=== PATIENT | female | born 1955 | race Hispanic/Latino ===

== ENCOUNTER → 2017-09-25 | Outpatient (CLI) | payer MEDICAID | END | disposition home or self-care (01) | LOC: RAH 09:35 | PROVIDERS: ATTEND Family Medicine | DX: R10.13 Epigastric pain (principal); R07.9 Chest pain, unspecified; G89.29 Other chronic pain; Z87.11 Personal history of peptic ulcer disease | CPT/HCPCS: 74240; 76604 ==

== ENCOUNTER → 2020-04-13 | Outpatient (CLI) | payer OTHER ==
[2020-04-13 11:21] LABS: CREATININE 0.6 mg/dL (0.5-1.5)
== END | disposition home or self-care (01) ==
LOC: LAB 09:20
PROVIDERS: ATTEND Urology
DX: R31.0 Gross hematuria (principal)
CPT/HCPCS: 36415; 82565; 84520

== ENCOUNTER → 2020-07-31 | Outpatient (CLI) | payer OTHER | END | disposition home or self-care (01) | LOC: RAH 09:30 | PROVIDERS: ATTEND Urology | DX: N20.0 Calculus of kidney (principal); K57.30 Diverticulosis of large intestine without perforation or abscess without bleeding; I87.8 Other specified disorders of veins; R31.0 Gross hematuria; Z90.49 Acquired absence of other specified parts of digestive tract | CPT/HCPCS: 74176 ==

== ENCOUNTER → 2021-02-05 | Outpatient (CLI) | payer OTHER ==
[2021-02-05 11:52] LABS: BASOPHILS % (AUTO) 0.7 % (0.0-5.0); EOSINOPHILS % (AUTO) 2.7 % (0.0-8.0); HEMATOCRIT 40.8 % (36-48); MEAN CORPUSCULAR HEMOGLOBIN 27.8 pg (27.0-33.0); MEAN CORPUSCULAR HGB CONC 32.8 g/dL (32.0-36.0); MEAN CORPUSCULAR VOLUME 84.6 fL (79-99); MONOCYTES % (AUTO) 7.3 % (3.0-13.0); NEUTROPHILS % (AUTO) 60.9 % (40.0-77.0); PLATELET COUNT (AUTO) 292 K/uL (130-400); RED BLOOD CELL COUNT(AUTO) 4.82 MIL/uL (4.00-5.50); RED CELL DISTRIBUTION WIDTH 13.9 % (11.0-15.5)
[2021-02-05 12:30] LABS: ALBUMIN 4.1 g/dL (3.5-5.0); BILIRUBIN,TOTAL 0.7 mg/dL (0.2-1.0); CREATININE 0.5 mg/dL (0.5-1.5); POTASSIUM 3.9 mmol/L (3.5-5.1); TOTAL PROTEIN, SERUM 7.5 g/dL (6.0-8.3)
== END | disposition home or self-care (01) ==
LOC: LAB 10:32
PROVIDERS: ATTEND Internal Medicine Gastroenterology
DX: R10.31 Right lower quadrant pain (principal)
CPT/HCPCS: 36415; 80053; 85025

== ENCOUNTER → 2021-03-10 | Outpatient (CLI) | payer MEDICARE, OTHER | END | disposition home or self-care (01) | LOC: CANPRECLI → RAH 03-03 10:43 | PROVIDERS: ATTEND Internal Medicine Gastroenterology | DX: K57.90 Diverticulosis of intestine, part unspecified, without perforation or abscess without bleeding (principal); N32.89 Other specified disorders of bladder; R16.0 Hepatomegaly, not elsewhere classified; K76.0 Fatty (change of) liver, not elsewhere classified | CPT/HCPCS: 74176 ==

== ENCOUNTER → 2025-02-03 | Outpatient (CLI) | payer MEDICARE, MEDICAID ==
--- NOTE | 2025-02-03 14:42 | HMCIMG ---
DOUBLE CONTRAST UPPER GI SERIES: Findings: The study was performed using provocative maneuvers After swallowing effervescent crystal and thick barium, there is no definite intrinsic or extrinsic lesion seen in the esophagus. The stomach is normal in size, shape, and configuration. The rugal folds appear to be normal. The duodenal bulb, duodenal sweep, and upper jejunum appear to be normal. Fluoroscopy time: 0.8 minutes . IMPRESSION: NORMAL DOUBLE CONTRAST UPPER GI SERIES.
== END | disposition home or self-care (01) ==
LOC: RAH 08:32
PROVIDERS: ATTEND Internal Medicine Gastroenterology
DX: R93.3 Abnormal findings on diagnostic imaging of other parts of digestive tract (principal); R10.9 Unspecified abdominal pain
CPT/HCPCS: 74240